=== PATIENT | male | born 1960 ===

== ENCOUNTER 2019-09-26 18:37 | Emergency (ER) | payer SELFPAY ==
[2019-09-26 18:39] VITALS: BP 150/90; PULSE 80; TEMP 101.2
--- NOTE | 2019-09-26 18:39 | PDOC ---
Rapid Medical Evaluation Time Seen by Provider: 09/26/19 18:38 Medical Evaluation: Allergies Allergy/AdvReac Type Severity Reaction Status Date / Time No Known Allergies Allergy Unverified 07/18/12 13:02 09/26/19 18:38 HPI: COVID-19 CDC guideline data points: The patient is a 59yo M presents with suspected COVID-19 with associated symptoms of fever, dry cough, SOB, complicated by this/these comorbidities: none. ROS: NEGATIVE: difficulty breathing, shortness of breath, chest pain, lightheadedness, dizziness, nausea, vomiting and diarrhea. Other 12 point ROS reviewed and negative. Exam: General: NAD, Well-Appearing, Awake, Alert Oriented x3. Vital signs stable. ENT: No rhinorrhea or nasal congestion. Neck: FROM, no midline tenderness. Lungs: Clear to auscultation bilaterally without wheezes, rhonchi or rales. Normal excursion. Patient is able to speak in full sentences. Heart: HR: 80. Regular rhythm, S1-S2 present, no murmurs rubs or gallops. Abdomen: Non-distended. MSK/Extremities: No decrease ROM, No obvious deformities. No obvious cyanosis noted. Neuro: Normal Gait, Cranial Nerves II through XII Grossly Intact. Skin: No obvious rashes, bruising. Color Normal Appearing. Assessment/Plan: Cough/fever Patient has a history of this/these comorbidities: none, denies recent travel and known COVID exposure. Patient does not meet testing criteria at this time. ASSESSMENT: Denies recent travel and known Covid exposure. Treatment: No APAP given allergies. CXR Discharge Disposition - Diagnosis Suspected 2019 novel coronavirus infection - Referrals - Patient Instructions - Post Discharge Activity
[2019-09-26] MEDS ORDERED: IBUPROFEN 400 MG TABLET (FP) PO ONE ×2 (18:47→18:52)
[2019-09-26] MEDS ORDERED: guaiFENesin/CODEINE 10 ML UNIT-DOSE CUPS PO ONE (18:47)
[2019-09-26] MEDS ORDERED: ALBUTEROL SO4 2.5/IPRATROPIUM 0.5 INH SOL 3 ML VIAL.NEB. NEB ONE (18:47)
[2019-09-26] MEDS ORDERED: guaiFENesin 200 MG/10 ML 10 ML UNIT-DOSE CUPS ONE (18:52)
--- NOTE | 2019-09-26 18:55 | PDOC ---
*Physical Exam - Vital Signs Last Vital Signs Temp Pulse Resp BP Pulse Ox 101.2 F H 80 24 H 150/90 98 09/26/19 18:37 09/26/19 18:37 09/26/19 18:37 09/26/19 18:37 09/26/19 18:37 - Physical Exam General Appearance: Yes: Nourished, Appropriately Dressed. No: Apparent Distress HEENT: positive: PO, Normal ENT Inspection, Pharynx Normal Respiratory/Chest: positive: Lungs Clear, Normal Breath Sounds. negative: Chest Tender, Respiratory Distress, Accessory Muscle Use Cardiovascular: positive: Regular Rhythm, Regular Rate Musculoskeletal: positive: Normal Inspection Extremity: positive: Normal Capillary Refill, Normal Inspection, Normal Range of Motion Integumentary: positive: Normal Color Neurologic: positive: Fully Oriented, Alert, Normal Mood/Affect, Normal Response Medical Decision Making - Medical Decision Making 09/26/19 18:51 I assumed care of 59yo M with no sig Pmhx BIBA with complains of persistent cough and sob with fevers for over 2 weeks. Patient saw PCP 4 days ago for symptoms and being tx with zpak and report has one dose left. Patient has not been taking anything for the cough. Denies recent travel or sick contacts exam as above A/P: 59yo with 2 weeks h/o URI symptoms with fevers Pt treated with 5 days zpak CXR to r/o PNA Duoneb and robitussin ordered for cough motrin 400mg PO ordered for fever due to Tylenol allergies reassess 09/26/19 19:31 CXR shows possible mild infiltrate. pt with improvement in symptoms with robittussin and nebs tx pt stable for d/c to finish prescribed zpak and will add medrol-andres and tessalon perles for cough and bronchospasm with strict f/u instructions Discharge - Discharge Information Problems reviewed: Yes Clinical Impression/Diagnosis: Suspected 2019 novel coronavirus infection URI (upper respiratory infection) Qualifiers: URI type: unspecified URI Qualified Code(s): J06.9 - Acute upper respiratory infection, unspecified Fever Qualifiers: Fever type: unspecified Qualified Code(s): R50.9 - Fever, unspecified Condition: Stable Disposition: HOME - Admission No - Additional Discharge Information Prescriptions: Methylprednisolone [Medrol Dose Andres] 4 mg PO ASDIR #21 tablet Benzonatate [Tessalon Pearls -] 100 mg PO Q8H PRN #21 capsule PRN Reason: Cough - Follow up/Referral - Patient Discharge Instructions Patient Printed Discharge Instructions: [facility]Coronavirus Instructions, [facility] COVID-19 Isolation Protocol Additional Instructions: You were seen for your cough and possible Coronavirus (COVID-19) Please call the [facility] testing center to make an appointment at or you can call [facility] at from 8:30 AM to 6 PM; or you can visit the [facility] website: [email or web address] for more information about testing at the [facility]. Take motrin 400 mg every 6 hours as needed for fever or pain. Take prescribed cough medication. Follow the dosing instructions on the bottle. Warm tea, honey, and salt water gargles may help your symptoms. Please take precautions and self quarantine for 2 weeks and follow-up with your primary care doctor and the Department of Health. Return to the nearest emergency department for shortness of breath, difficulty breathing, chest pain, or if you have any changes in your symptoms. Print Language: STATELESS - Post Discharge Activity
== END 2019-09-26 19:40 | disposition home or self-care (01) ==
LOC: JER 18:37
DX: R05 Cough (principal); R50.9 Fever, unspecified; R06.02 Shortness of breath
CPT/HCPCS: 71045-TC-FY; 99284-25